=== PATIENT | male | born 1995 | race African-American/Black ===

== ENCOUNTER 2021-07-29 14:21 | Emergency (ER) | payer SELFPAY ==
[~2021-07-29] VITALS: Ht 177.8 cm; Wt 88.0 kg
[2021-07-29 14:25] VITALS: BP 121/64
[2021-07-29] MEDS ORDERED: BACITRACIN ZINC OINT UDPKT TOP NR (18:15)
[2021-07-29] MEDS ORDERED: LIDOCAINE HCL/EPINEPHRINE 1%-EPI 1:100,000 20 ML VIAL INFIL NR (18:15)
[2021-07-29] MEDS ORDERED: IBUPROFEN 600MG TABLET PO NR (18:15)
[2021-07-29] MEDS ORDERED: IBUP-2029 PO (18:37)
[2021-07-29] MEDS ORDERED: CEPH500T PO (18:37)
[2021-07-29] MEDS ORDERED: SULF1TAB48 PO (18:37)
== END 2021-07-29 20:08 | disposition home or self-care (01) ==
LOC: ER 14:21
DX: L02.415 Cutaneous abscess of right lower limb (principal)
CPT/HCPCS: 99283; Z7610

== ENCOUNTER 2021-08-01 11:28 | Emergency (ER) | payer MEDICAID ==
[~2021-08-01] VITALS: Ht 177.8 cm; Wt 89.0 kg
[~2021-08-01 11:28] MED LIST: CEPH500T PO; IBUP-2029 PO; SULF1TAB48 PO
[2021-08-01 11:53] VITALS: BP 125/65
== END 2021-08-01 13:21 | disposition home or self-care (01) ==
LOC: ER 13:08
DX: Z48.00 Encounter for change or removal of nonsurgical wound dressing (principal); L02.416 Cutaneous abscess of left lower limb; M79.662 Pain in left lower leg
CPT/HCPCS: 99281